=== PATIENT | female | born 1940 | race Two or more races ===

== ENCOUNTER → 2017-12-04 | Outpatient (CLI) | payer OTHER | END | disposition home or self-care (01) | LOC: NUCLEAR 10:28 | DX: M81.0 Age-related osteoporosis without current pathological fracture (principal) ==

== ENCOUNTER 2018-10-02 12:53 | Outpatient (CLI) | payer OTHER | END 2018-10-02 13:10 | disposition home or self-care (01) | LOC: RAD 12:53 | DX: M54.5 Low back pain (principal) ==

== ENCOUNTER 2018-10-24 09:54 | Outpatient (CLI) | payer OTHER | END 2018-10-24 09:59 | disposition home or self-care (01) | LOC: MAMO-SONO 09:54 | DX: Z12.31 Encounter for screening mammogram for malignant neoplasm of breast (principal); C50.911 Malignant neoplasm of unspecified site of right female breast ==

== ENCOUNTER 2019-05-13 08:16 | Outpatient (CLI) | payer OTHER | END 2019-05-13 09:55 | disposition home or self-care (01) | LOC: MRI 08:16 → TOM 08:16 → MRI 09:55 | DX: E78.2 Mixed hyperlipidemia (principal); M81.0 Age-related osteoporosis without current pathological fracture; E11.65 Type 2 diabetes mellitus with hyperglycemia; E11.42 Type 2 diabetes mellitus with diabetic polyneuropathy; E11.59 Type 2 diabetes mellitus with other circulatory complications; I87.2 Venous insufficiency (chronic) (peripheral); M54.42 Lumbago with sciatica, left side | CPT/HCPCS: 72148 ==

== ENCOUNTER 2019-06-18 14:13 | Emergency (ER) | payer OTHER ==
[~2019-06-18] VITALS: Ht 160 cm; Wt 69.4 kg
[2019-06-18] MEDS ORDERED: HUMULIN 70100 UNIT/2 SUBCUTANEO (14:36)
[2019-06-18] MEDS ORDERED: LOSARTAN-HCTZ1 EAC2 PO (14:36)
[2019-06-18] MEDS ORDERED: LIPITOR20 MG PO (14:36)
[2019-06-18] MEDS ORDERED: LEVOTHYROXINE25 MCG PO (14:36)
[2019-06-19] MEDS ORDERED: OSEL75CA PO (09:48)
[2019-06-19] MEDS ORDERED: ALBUTEROL0.63 MG/3 IH (09:48)
== END 2019-06-19 09:47 | disposition home or self-care (01) ==
LOC: ER 14:13
DX: J09.X2 Influenza due to identified novel influenza A virus with other respiratory manifestations (principal); B34.9 Viral infection, unspecified; E87.6 Hypokalemia; R05 Cough

== ENCOUNTER 2019-07-03 10:02 | Outpatient (CLI) | payer OTHER ==
[~2019-07-03 10:02] MED LIST: ALBUTEROL0.63 MG/3 IH; HUMULIN 70100 UNIT/2 SUBCUTANEO; LEVOTHYROXINE25 MCG PO; LIPITOR20 MG PO; LOSARTAN-HCTZ1 EAC2 PO; OSEL75CA PO
== END 2019-07-03 10:08 | disposition home or self-care (01) ==
LOC: SONOGRAMA 10:02
DX: N91.1 Secondary amenorrhea (principal)

== ENCOUNTER 2019-09-17 16:38 | Inpatient (IN) | payer OTHER ==
[~2019-09-17] VITALS: Ht 160 cm; Wt 70.8 kg
[2019-09-26] MEDS ORDERED: CIPRO500 MG PO (11:34)
[2019-09-26] MEDS ORDERED: PERCOCET 5-3251 EACH PO (11:34)
[2019-09-26] MEDS ORDERED: ELIQUIS2.5 MG PO (11:34)
== END 2019-09-26 17:04 | DRG 470 ==
LOC: O/R 09-18 07:45 → SURG 09-24 06:10 → SURH 09-24 07:45 → SURG 09-24 16:11
PROVIDERS: ADMIT Orthopaedic Surgery
PROC: 0MNP0ZZ Release Left Knee Bursa and Ligament, Open Approach (ICD-10-PCS; 2019-09-24)
PROC: 0SRD0J9 Replacement of Left Knee Joint with Synthetic Substitute, Cemented, Open Approach (ICD-10-PCS; principal; 2019-09-24 12:30)
DX: M17.12 Unilateral primary osteoarthritis, left knee (principal); D62 Acute posthemorrhagic anemia; M22.12 Recurrent subluxation of patella, left knee; M81.0 Age-related osteoporosis without current pathological fracture

== ENCOUNTER → 2020-04-20 | Outpatient (CLI) | payer OTHER ==
[~2020-04-20] MED LIST changes: +CIPRO500 MG PO; +ELIQUIS2.5 MG PO; +PERCOCET 5-3251 EACH PO
== END | disposition home or self-care (01) ==
LOC: MAMO-SONO 11:15
PROVIDERS: ATTEND Specialist
DX: Z85.3 Personal history of malignant neoplasm of breast (principal)

== ENCOUNTER → 2020-10-06 | Outpatient (CLI) | payer OTHER | END | disposition home or self-care (01) | LOC: MRI 09:47 | PROVIDERS: ATTEND Psychiatry & Neurology Clinical Neurophysiology | DX: G93.89 Other specified disorders of brain (principal); F01.50 Vascular dementia, unspecified severity, without behavioral disturbance, psychotic disturbance, mood disturbance, and anxiety; I63.30 Cerebral infarction due to thrombosis of unspecified cerebral artery | CPT/HCPCS: 70551 ==

== ENCOUNTER 2023-04-18 01:04 | Emergency (ER) | payer OTHER ==
[~2023-04-18] VITALS: Ht 152.4 cm; Wt 44.5 kg
[2023-04-18] MEDS ORDERED: TOPROL XL50 M1 (01:35)
== END 2023-04-18 06:12 | disposition home or self-care (01) ==
LOC: ER 01:04
DX: E11.65 Type 2 diabetes mellitus with hyperglycemia (principal); Z79.4 Long term (current) use of insulin; I10 Essential (primary) hypertension; Z88.6 Allergy status to analgesic agent; Z88.0 Allergy status to penicillin

== ENCOUNTER 2023-05-04 11:59 | Outpatient (CLI) | payer OTHER ==
[~2023-05-04 11:59] MED LIST changes: +TOPROL XL50 M1
== END 2023-05-04 12:00 | disposition home or self-care (01) ==
LOC: NUCLEAR 11:59
PROVIDERS: ATTEND Emergency Medicine
DX: M81.0 Age-related osteoporosis without current pathological fracture (principal)

== ENCOUNTER 2023-12-20 07:49 | Outpatient (CLI) | payer OTHER ==
[2023-12-20 08:57] LABS: HEMATOCRIT 38.1 % (36.0-45.00); HEMOGLOBIN 12.4 g/dL (12.0-15.00); MEAN CORPUSCULAR HEMOGLOBIN 27.1 pg (27.00-32.0); MEAN CORPUSCULAR HGB CONC 32.6 g/dl (32.0-36.0); PLATELET COUNT 157 K/uL (150-450); RED BLOOD COUNT 4.59 M/uL (4.00-6.00); RED CELL DISTRIBUTION WIDTH 13.8 % (11.5-14.5)
[2023-12-20 09:19] LABS: URIC ACID 3.6 mg/dL (2.5-7.5)
[2023-12-20 09:30] LABS: PH,URINE 5.5 (5.0-8.0); URINE APPEARANCE Cloudy; URINE BILIRRUBIN Negative (NEGATIVE); URINE BLOOD NHT; URINE COLOR Yellow; URINE LEUKOCYTE Moderate; URINE NITRATE Negative; URINE PROTEIN Trace (NEGATIVE); URINE UROBILINOGEN 0.2 E.U./dl
[2023-12-20 09:35] LABS: URINE EPITHELIAL CELLS 13.2 uL (0.0-38.8); URINE RBC 3.1 uL (0.0-20.8); URINE WBC 1074.3 uL (0.0-23.2)
[2023-12-20 09:44] LABS: ALBUMIN 3.9 gm/dL (3.4-5.0); CALCIUM 10.2 mg/dL (8.5-10.1); CHOL HDL RATIO 2.7 (0-5.0); CREATININE SERUM 0.8 mg/dL (0.55-1.02); GFR 68.84; PHOSPHOROUS 3.7 mg/dL (2.5-4.9); POTASSIUM 4.53 mEq/L (3.5-5.1)
[2023-12-20 09:51] LABS: TSH 0.325 uIU/mL (0.358-3.74)
[2023-12-20 10:00] LABS: URINE BACTERIA > 9821.5 uL (0.0-1933); URINE GLUCOSE 500 MG/DL (NEGATIVE)
== END 2023-12-20 07:51 | disposition home or self-care (01) ==
LOC: LAB 07:49
PROVIDERS: ATTEND Emergency Medicine
DX: R10.9 Unspecified abdominal pain (principal); E78.5 Hyperlipidemia, unspecified; D64.9 Anemia, unspecified; E03.9 Hypothyroidism, unspecified; R80.9 Proteinuria, unspecified; E11.9 Type 2 diabetes mellitus without complications; Z12.11 Encounter for screening for malignant neoplasm of colon; N18.30 Chronic kidney disease, stage 3 unspecified; E11.21 Type 2 diabetes mellitus with diabetic nephropathy; D63.1 Anemia in chronic kidney disease; N30.00 Acute cystitis without hematuria

== ENCOUNTER 2023-12-20 08:40 | Outpatient (CLI) | payer OTHER | END 2023-12-20 08:49 | disposition home or self-care (01) | LOC: SONOGRAMA 08:40 | PROVIDERS: ATTEND Specialist/Technologist, Other Nephrology | DX: R10.9 Unspecified abdominal pain (principal); N18.30 Chronic kidney disease, stage 3 unspecified; E31.9 Polyglandular dysfunction, unspecified ==